=== PATIENT | female | born 1970 | race Caucasian/White ===

== ENCOUNTER → 2018-05-15 | Outpatient (CLI) | payer OTHER | LOC: MC.RAD 11:16 | DX: Z12.31 Encounter for screening mammogram for malignant neoplasm of breast (principal) ==

== ENCOUNTER → 2018-09-30 | Outpatient (CLI) | payer OTHER | LOC: COL.RAD 07:30 | DX: R93.0 Abnormal findings on diagnostic imaging of skull and head, not elsewhere classified (principal); R51 Headache | CPT/HCPCS: A9585 ==

== ENCOUNTER → 2019-07-08 | Outpatient (CLI) | payer OTHER | LOC: MC.RAD 16:45 | DX: Z12.31 Encounter for screening mammogram for malignant neoplasm of breast (principal); N63.20 Unspecified lump in the left breast, unspecified quadrant ==

== ENCOUNTER → 2019-07-13 | Outpatient (CLI) | payer OTHER | LOC: MC.RAD 13:00 | DX: N60.02 Solitary cyst of left breast (principal) ==

== ENCOUNTER → 2020-08-16 | Outpatient (CLI) | payer OTHER | LOC: MC.RAD 13:30 | DX: N60.11 Diffuse cystic mastopathy of right breast (principal); N60.12 Diffuse cystic mastopathy of left breast; N60.01 Solitary cyst of right breast ==

== ENCOUNTER → 2020-10-24 | Outpatient (REF) | LOC: ZLAB.WCH 17:02 | DX: Z01.89 Encounter for other specified special examinations (principal) ==

== ENCOUNTER → 2021-03-26 | Outpatient (CLI) | payer OTHER | LOC: MC.RAD 11:00 | DX: N60.11 Diffuse cystic mastopathy of right breast (principal); N60.12 Diffuse cystic mastopathy of left breast ==

== ENCOUNTER → 2022-02-06 | Outpatient (CLI) | payer OTHER | LOC: MC.RAD 13:15 | DX: Z12.31 Encounter for screening mammogram for malignant neoplasm of breast (principal) ==

== ENCOUNTER → 2022-11-29 | Outpatient (CLI) | payer OTHER | LOC: MC.RAD 11:00 | DX: N64.4 Mastodynia (principal) ==